=== PATIENT | female | born 1950 | race Caucasian/White ===

== ENCOUNTER 2017-09-04 10:36 | Day surgery (SDC) | payer MEDICARE ==
[~2017-09-04] VITALS: Ht 175.3 cm; Wt 78.0 kg
[~2017-09-04 10:36] MED LIST: 5-Htp50 MG PO; BACL10 PO; CLON.5 PO; Clonazepam0.25 MG PO; FISH OIL 1,0001 EAC1 PO; FISH OIL 1,2001 EACH PO; HYDACE10B PO; LEVSOD125 PO; MOVE FREE JOIN1 EACH PO; Magnesium27 MG PO; Magnesium500 M1 PO; Mobic15 MG PO; Multivitamin1 EAC1 PO; ONE DAILY COMP1 EACH PO; OXYC10TA19 PO; Omeprazole20 M1 PO; Prilosec Otc20 MG PO; VENL25 PO; VENL37.5 PO
[2017-09-10] MEDS ORDERED: VENL37.5 PO (09:51)
[2017-09-10] MEDS ORDERED: FISH OIL 1,2001 EAC1 PO (09:51)
[2017-09-10] MEDS ORDERED: CLON1 PO (09:52)
[2017-09-10] MEDS ORDERED: ACET325 PO (09:52)
[2017-09-10] MEDS ORDERED: CHLO4 PO (09:53)
[2017-09-10] MEDS ORDERED: DIPH50 PO (09:53)
[2017-09-10] MEDS ORDERED: MOVE FREE PO (09:54)
[2017-09-10] MEDS ORDERED: MAGNESIUM PO (09:54)
[2017-09-10] MEDS ORDERED: HYDR1TAB94 PO (09:55)
[2017-09-10] MEDS ORDERED: 5-Htp50 MG PO (09:55)
[2017-09-10] MEDS ORDERED: Omeprazole20 M1 PO (09:56)
== END 2017-09-04 11:53 | disposition home or self-care (01) ==
LOC: ORSCMMR 10:36
PROVIDERS: Internal Medicine Gastroenterology
PROC: 0DB48ZX Excision of Esophagogastric Junction, Via Natural or Artificial Opening Endoscopic, Diagnostic (ICD-10-PCS; principal; 2017-09-04 11:00)
PROC: 0DB68ZX Excision of Stomach, Via Natural or Artificial Opening Endoscopic, Diagnostic (ICD-10-PCS; principal; 2017-09-04 11:00)
DX: K25.3 Acute gastric ulcer without hemorrhage or perforation (principal); K22.70 Barrett's esophagus without dysplasia; K29.70 Gastritis, unspecified, without bleeding; K44.9 Diaphragmatic hernia without obstruction or gangrene; F32.9 Major depressive disorder, single episode, unspecified; Z79.899 Other long term (current) drug therapy; Z87.891 Personal history of nicotine dependence
CPT/HCPCS: 88305; 88342; J7120

== ENCOUNTER 2017-09-26 11:15 | Day surgery (SDC) | payer MEDICARE ==
[~2017-09-26] VITALS: Ht 172.7 cm; Wt 77.6 kg
[~2017-09-26 11:15] MED LIST changes: +ACET325 PO; +CHLO4 PO; +CLON1 PO; +DIPH50 PO; +FISH OIL 1,2001 EAC1 PO; +HYDR1TAB94 PO; +MAGNESIUM PO; +MOVE FREE PO
[2017-09-26] MEDS ORDERED: MAGOXI400 PO (15:49)
[2017-09-26] MEDS ORDERED: GLUC500 PO (15:52)
[2017-09-26] MEDS ORDERED: PROM25 PO (15:53)
[2017-09-26] MEDS ORDERED: ASPI325EC PO (15:53)
[2017-09-26] MEDS ORDERED: OPTIFLEX-C400 MG PO (15:53)
[2017-09-26] MEDS ORDERED: OXYC5 PO (15:54)
[2017-09-27 05:04] LABS: BASOPHILS ABSOLUTE AUTO 0.01 K/mm3 (0.00-0.23); BASOPHILS PERCENT AUTO 0 % (0-2); EOSINOPHILS PERCENT AUTO 0 % (0-6); Hematocrit 28.6 % (33.0-51.0); Hemoglobin 9.4 g/dL (11.5-16.0); IMMATURE GRAN ABSOLUTE AUTO 0.03 K/mm3 (0.00-0.10); IMMATURE GRAN PERCENT AUTO 0 % (0-1); LYMPHOCYTES ABSOLUTE AUTO 1.12 K/mm3 (0.84-5.20); LYMPHOCYTES PERCENT AUTO 13 % (21-46); MONOCYTES ABSOLUTE AUTO 0.77 K/mm3 (0.16-1.47); MONOCYTES PERCENT AUTO 9 % (4-13); Mean Corpuscular HGB 30.7 pg (26.0-34.0); Mean Corpuscular HGB Conc 32.9 g/dL (31.5-36.5); Mean Corpuscular Volume 94 fL (80-100); Mean Platelet Volume 10.5 fL (9.1-12.4); NEUTROPHILS ABSOLUTE AUTO 6.53 K/mm3 (1.96-9.15); NEUTROPHILS PERCENT AUTO 77 % (41-73); Platelet Count 164 K/mm3 (150-400); RDW Coefficient Variation 14.1 % (11.7-14.2); Red Blood Cell Count 3.06 M/mm3 (3.80-5.20); White Blood Cell Count 8.46 K/mm3 (4.00-11.30)
[2017-09-27 05:34] LABS: Anion Gap 8 mmol/L (6-16); Blood Urea Nitrogen 16 mg/dL (8-24); Bun/Creatinine Ratio 19.8 (12.0-20.0); CO2, Blood 26 mmol/L (21-32); Calcium, Blood 8.1 mg/dL (8.5-10.1); Chloride, Blood 104 mmol/L (98-108); Creatinine, Blood 0.81 mg/dL (0.40-1.00); Glomerular Filtration Rate >60 (60-); Glucose, Blood 102 mg/dL (70-99); Potassium, Blood 4.2 mmol/L (3.5-5.5); Sodium, Blood 138 mmol/L (136-145)
[2017-09-27] MEDS ORDERED: ENOX40I SC (07:48)
== END 2017-09-27 14:29 | disposition home or self-care (01) ==
LOC: SURS 11:15 → ORSCMMR 11:15 → SURS 11:15 → PRE IP 11:15 → EDSTATUS 13:45 → PRE IP 13:45 → SURS 16:37 → ENPENDDIS 09-27 09:19 → ORSCMMR 09-27 14:29 → SURS 09-27 14:29
PROVIDERS: Orthopaedic Surgery
PROC: 0SRD0J9 Replacement of Left Knee Joint with Synthetic Substitute, Cemented, Open Approach (ICD-10-PCS; principal; 2017-09-26 13:45)
DX: M17.12 Unilateral primary osteoarthritis, left knee (principal); Z01.812 Encounter for preprocedural laboratory examination; E78.00 Pure hypercholesterolemia, unspecified; F31.9 Bipolar disorder, unspecified; F43.10 Post-traumatic stress disorder, unspecified; Z79.899 Other long term (current) drug therapy
CPT/HCPCS: 36415; 73560-LT; 80048; 83735; 85025; 86850; 86900; 86901; 88300; 97110; 97116; 97161; C1713; C1776; G8978; G8979; G8980; J0171; J0360; J0690; J0735; J1100; J1650; J1885; J2250; J2405; J2550; J2795; J3010; J3370; J7120

== ENCOUNTER 2020-05-30 03:22 | Emergency (ER) | payer MEDICARE ==
[~2020-05-30] VITALS: Ht 175.3 cm; Wt 74.8 kg
[~2020-05-30 03:22] MED LIST changes: +ASPI325EC PO; +ENOX40I SC; +GLUC500 PO; +MAGOXI400 PO; +OPTIFLEX-C400 MG PO; +OXYC5 PO; +PROM25 PO
[2020-05-30 05:41] LABS: BASOPHILS ABSOLUTE AUTO 0.03 K/mm3 (0.00-0.23); BASOPHILS PERCENT AUTO 0 % (0-2); EOSINOPHILS ABSOLUTE AUTO 0.05 K/mm3 (0.00-0.68); EOSINOPHILS PERCENT AUTO 1 % (0-6); Hematocrit 41.4 % (33.0-51.0); Hemoglobin 13.6 g/dL (11.5-16.0); IMMATURE GRAN ABSOLUTE AUTO 0.03 K/mm3 (0.00-0.10); IMMATURE GRAN PERCENT AUTO 0 % (0-1); LYMPHOCYTES ABSOLUTE AUTO 1.03 K/mm3 (0.84-5.20); LYMPHOCYTES PERCENT AUTO 10 % (21-46); MONOCYTES ABSOLUTE AUTO 0.65 K/mm3 (0.16-1.47); MONOCYTES PERCENT AUTO 6 % (4-13); Mean Corpuscular HGB 30.8 pg (26.0-34.0); Mean Corpuscular HGB Conc 32.9 g/dL (31.5-36.5); Mean Corpuscular Volume 94 fL (80-100); Mean Platelet Volume 11.1 fL (9.1-12.4); NEUTROPHILS ABSOLUTE AUTO 8.47 K/mm3 (1.96-9.15); NEUTROPHILS PERCENT AUTO 83 % (41-73); Platelet Count 174 K/mm3 (150-400); RDW Coefficient Variation 13.8 % (11.7-14.2); RDW Standard Deviation 48.2 fL (35.1-46.3); Red Blood Cell Count 4.41 M/mm3 (3.80-5.20); White Blood Cell Count 10.26 K/mm3 (4.00-11.30)
[2020-05-30 05:55] LABS: Alanine Aminotransfer (ALT/SGP 13 U/L (12-78); Albumin/Globulin Ratio 1.1 (0.8-1.8); Alk Phos 80 U/L (50-136); Anion Gap 8 mmol/L (6-16); Aspartate Aminotrans (AST/SGOT 18 U/L (12-37); Bilirubin, Total 0.4 mg/dL (0.1-1.0); Blood Urea Nitrogen 20 mg/dL (8-24); Bun/Creatinine Ratio 26.9 (12.0-20.0); CO2, Blood 23 mmol/L (21-32); Calcium, Blood 9.6 mg/dL (8.5-10.1); Chloride, Blood 108 mmol/L (98-108); Creatinine, Blood 0.74 mg/dL (0.40-1.00); Globulin, Blood 3.6 g/dL (2.2-4.0); Glomerular Filtration Rate >60 (60-); Glucose, Blood 124 mg/dL (70-99); Potassium, Blood 3.5 mmol/L (3.5-5.5); Sodium, Blood 139 mmol/L (136-145); Total Protein, Blood 7.6 g/dL (6.4-8.2)
[2020-05-30 09:07] LABS: Adenovirus F 40/41 Not Detected (NOT DETECT); Astrovirus Not Detected (NOT DETECT); Campylobacter Sp Not Detected (NOT DETECT); Cryptosporidium Not Detected (NOT DETECT); Cyclospora Cayetanensis Not Detected (NOT DETECT); E. Coli O157 Not Detected (NOT DETECT); Entamoeba Histolytica Not Detected (NOT DETECT); Enteroaggregative E. coli-EAEC Not Detected (NOT DETECT); Enteropathogenic E. coli-EPEC Not Detected (NOT DETECT); Enterotoxigenic E. coli-ETEC Not Detected (NOT DETECT); Giardia Lamblia Not Detected (NOT DETECT); Norovirus GI/GII Not Detected (NOT DETECT); Plesiomonas Shigelloides Not Detected (NOT DETECT); Rotavirus A Not Detected (NOT DETECT); Salmonella Sp Not Detected (NOT DETECT); Sapovirus Not Detected (NOT DETECT); Shiga Toxin-prod E. coli-STEC Not Detected (NOT DETECT); Shigella/Enteroin E. coli-EIEC Not Detected (NOT DETECT); Vibrio Cholerae Not Detected (NOT DETECT); Vibrio Sp Not Detected (NOT DETECT); Yersinia Enterocolitica Not Detected (NOT DETECT)
== END 2020-05-30 07:36 | disposition home or self-care (01) ==
LOC: ER 03:22
PROVIDERS: Emergency Medicine
DX: N13.2 Hydronephrosis with renal and ureteral calculous obstruction (principal); R19.7 Diarrhea, unspecified; F31.9 Bipolar disorder, unspecified; E78.00 Pure hypercholesterolemia, unspecified; F43.10 Post-traumatic stress disorder, unspecified; Z79.899 Other long term (current) drug therapy
CPT/HCPCS: 0097U; 36415; 74177; 80053; 83690; 85025; 99284-25; Q9967

== ENCOUNTER 2020-12-17 13:48 | Emergency (ER) | payer MEDICARE ==
[~2020-12-17] VITALS: Ht 175.3 cm; Wt 73.9 kg
[2020-12-17 14:52] LABS: BASOPHILS ABSOLUTE AUTO 0.04 K/mm3 (0.00-0.23); BASOPHILS PERCENT AUTO 0 % (0-2); EOSINOPHILS ABSOLUTE AUTO 0.01 K/mm3 (0.00-0.68); EOSINOPHILS PERCENT AUTO 0 % (0-6); Hematocrit 40.8 % (33.0-51.0); Hemoglobin 13.6 g/dL (11.5-16.0); IMMATURE GRAN ABSOLUTE AUTO 0.05 K/mm3 (0.00-0.10); IMMATURE GRAN PERCENT AUTO 0 % (0-1); LYMPHOCYTES ABSOLUTE AUTO 1.02 K/mm3 (0.84-5.20); LYMPHOCYTES PERCENT AUTO 8 % (21-46); MONOCYTES ABSOLUTE AUTO 0.96 K/mm3 (0.16-1.47); MONOCYTES PERCENT AUTO 8 % (4-13); Mean Corpuscular HGB 31.1 pg (26.0-34.0); Mean Corpuscular HGB Conc 33.3 g/dL (31.5-36.5); Mean Corpuscular Volume 93 fL (80-100); Mean Platelet Volume 10.7 fL (9.1-12.4); NEUTROPHILS ABSOLUTE AUTO 10.75 K/mm3 (1.96-9.15); NEUTROPHILS PERCENT AUTO 84 % (41-73); Platelet Count 202 K/mm3 (150-400); RDW Coefficient Variation 13.4 % (11.7-14.2); RDW Standard Deviation 46.6 fL (35.1-46.3); Red Blood Cell Count 4.37 M/mm3 (3.80-5.20); White Blood Cell Count 12.83 K/mm3 (4.00-11.30)
[2020-12-17 15:06] LABS: Alanine Aminotransfer (ALT/SGP 8 U/L (12-78); Albumin, Blood 3.6 g/dL (3.4-5.0); Albumin/Globulin Ratio 0.8 (0.8-1.8); Alk Phos 121 U/L (50-136); Anion Gap 9 mmol/L (6-16); Aspartate Aminotrans (AST/SGOT 8 U/L (12-37); Bilirubin, Total 0.7 mg/dL (0.1-1.0); Blood Urea Nitrogen 16 mg/dL (8-24); Bun/Creatinine Ratio 17.6 (12.0-20.0); CO2, Blood 24 mmol/L (21-32); Calcium, Blood 9.8 mg/dL (8.5-10.1); Chloride, Blood 100 mmol/L (98-108); Creatinine, Blood 0.91 mg/dL (0.40-1.00); Globulin, Blood 4.4 g/dL (2.2-4.0); Glomerular Filtration Rate >60 (60-); Glucose, Blood 116 mg/dL (70-99); Potassium, Blood 4.1 mmol/L (3.5-5.5); Sodium, Blood 133 mmol/L (136-145); Troponin I <0.015 ng/mL (0.000-0.040)
[2020-12-17 18:08] LABS: Source, Urine Clean Catch
[2020-12-17 18:37] LABS: Bilirubin, Urine Neg (Neg); Blood, Urine 2+ (Neg); Glucose Qualitative, Urine Neg (Neg); Ketones, Urine Neg (Neg); Leukocyte Esterase, Urine 1+ (Neg); Nitrite, Urine Neg (Neg); Protein, Urine 1+ (Neg); Urobilinogen, Urine NORM (Normal)
[2020-12-17 18:48] LABS: Appearance, Urine Hazy (Clear); Color, Urine Yellow (P-Yellow)
[2020-12-17 18:50] LABS: Bacteria Mod /hpf; Red Blood Cells, Urine 0-2 /hpf (0-2); Squamous Epithelial Cells Few /hpf (Few); White Blood Cells, Urine 0-2 /hpf (0-5)
== END 2020-12-17 19:02 | disposition home or self-care (01) ==
LOC: ER 13:48
PROVIDERS: Emergency Medicine; Physician Assistant
DX: M79.604 Pain in right leg (principal); M79.605 Pain in left leg; Z79.899 Other long term (current) drug therapy; Z87.891 Personal history of nicotine dependence
CPT/HCPCS: 36415; 71045; 80053; 81001; 84484; 85025; 87086; 93005; 93010; 93970; 99284-25

== ENCOUNTER → 2020-12-17 | Outpatient (CLI) | payer MEDICARE | END | disposition home or self-care (01) | LOC: LAB SHORT 12:00 | DX: R19.7 Diarrhea, unspecified (principal) | CPT/HCPCS: 87015; 87045; 87046; 87205; 87899 ==

== ENCOUNTER 2021-01-17 09:26 | Day surgery (SDC) | payer MEDICARE ==
[~2021-01-17] VITALS: Ht 175.3 cm; Wt 75.9 kg
--- NOTE | 2021-01-17 09:58 | NUR ---
Ambulatory in Day Surgery Patient states colon prep results clear. Patient confirms NPO status and agrees with scheduled surgery. History, Chart, Medications and Allergies reviewed before start of procedure. Lungs clear T/O to Auscultation. Patient States Post-Procedure ride home has been arranged.
--- NOTE | 2021-01-17 10:20 | NUR ---
PTS COVID VACCINE QUESTIONED, PT REPORTS HAS SECOND VACCINE. DATE ON CARD, STS FUTURE DATE (01/22). PHARMACY CALLED AND STATES THEY WERE UNABLE TO FIND PROOF THAT SECOND VACCINE WAS ADMINISTERED. REPORTS PT WAS A "NO SHOW". RECENT COVID TEST AND PCR COMPLETED, APPROX [address] TRISTAN CONTACTED, INSTRUCTIONS FOR RAPID COVID TESTING PRIOR TO PROCEDURE. PT AGREES TO PROCEDURE. SWAB COLLECTED AND TAKEN TO LAB.
[2021-01-17 11:29] LABS: SARS-Cov-2 (COVID-19) PCR, MMC NEGATIVE (NEGATIVE)
--- NOTE | 2021-01-17 11:38 | NUR ---
01/17/21 1138 Jesus Crook History, Chart, Medications and Allergies reviewed before start of procedure. MONITOR INTACT WITH CONTINUOUS PULSE OXIMETRY AND INTERMITTENT BP. 3-LEAD EKG REVIEWED WITH PHYSICIAN PRIOR TO START OF PROCEDURE. O2 VIA N/C INTACT THROUGHOUT SEDATION/PROCEDURE. PATIENT DETERMINED TO BE ASA APPROPRIATE FOR PROPOFOL SEDATION PRIOR TO START OF PROCEDURE BY DR. RAMÍREZ.
--- NOTE | 2021-01-17 12:56 | NUR ---
Patient up to Ambulate independently. Gait steady. Discharge instructions reviewed with patient. Patient verbalizes understanding. Copy given to patient to take home. Patient States Post-Procedure ride home has been arranged WITH FRIEND. Discharged via wheelchair to private car for ride home.
== END 2021-01-17 12:49 | disposition home or self-care (01) ==
LOC: ORSCMMR 09:26 → ORD 10:30 → ORSCMMR 12:49
PROVIDERS: Anesthesiology; Internal Medicine Gastroenterology
PROC: 0DBB8ZX Excision of Ileum, Via Natural or Artificial Opening Endoscopic, Diagnostic (ICD-10-PCS; principal; 2021-01-17 10:30)
PROC: 0DBL8ZX Excision of Transverse Colon, Via Natural or Artificial Opening Endoscopic, Diagnostic (ICD-10-PCS; principal; 2021-01-17 10:30)
PROC: 0DBK8ZX Excision of Ascending Colon, Via Natural or Artificial Opening Endoscopic, Diagnostic (ICD-10-PCS; principal; 2021-01-17 10:30)
PROC: 0DBN8ZX Excision of Sigmoid Colon, Via Natural or Artificial Opening Endoscopic, Diagnostic (ICD-10-PCS; principal; 2021-01-17 10:30)
DX: R19.7 Diarrhea, unspecified (principal); K52.832 Lymphocytic colitis; F32.9 Major depressive disorder, single episode, unspecified; R10.9 Unspecified abdominal pain; Z87.891 Personal history of nicotine dependence; Z79.899 Other long term (current) drug therapy; Z20.822 Contact with and (suspected) exposure to COVID-19
CPT/HCPCS: 88305; J2704; J7120; U0004

== ENCOUNTER 2022-11-29 11:11 | Day surgery (SDC) | payer MEDICARE ==
[~2022-11-29] VITALS: Ht 172.7 cm; Wt 78.3 kg
[~2022-11-29 11:11] MED LIST changes: +ASPI81CH PO; +Aspir 8181 MG PO; +CALCIUM MAGNESIUM PO; +METO25ER PO; +NITR.4SL SL; +OMEP20ER PO; +PROBIOTIC1 EA13 PO; +ROSU10TA PO
--- NOTE | 2022-11-29 11:59 | NUR ---
Ambulatory in Day Surgery Surgical site prepped with 2% Chlorhexidine cloth wipe. History, Chart, Medications and Allergies reviewed before start of procedure.Patient confirms NPO status and agrees with scheduled surgery. Lungs clear T/O to Auscultation. Patient reports completing Chlorhexadine shower X2 prior to admission to hospital.
--- NOTE | 2022-11-29 15:11 | NUR ---
11/29/22 1511 Adeel Bah I PATIENT RECEIVED IV VANCOMYCIN 1 GRAM IN THE PREOPERATIVE SETTING.
--- NOTE | 2022-11-29 18:00 | NUR ---
PATIENT CAME BACK FROM PACU TODAY AT 1730. POD 0 RIGHT TKA PATIENT IS A&OX4. VS ARE WNL AND IS ON RA. PATIENT DENIES PAIN AT THIS TIME. SHE REPORTS SLIGHT NUMBNESS IN HER RIGHT FOOT BUT SHE IS ABLE TO WIGGLE ALL FINGERS AND TOES WHEN ASKED. PEDAL PULSES ARE STRONG. PATIENT IS NAUSEOUS AND SHE STATED "THIS USUALLY HAPPENS AFTER SURGERIES FOR ME, BUT I FEEL PRETTY OKAY FOR NOW AND DON'T WANT MEDICATIONS AT THIS TIME". SHE IS TOLERATING SMALL AMOUNTS OF PO INTAKE. SHE IS LAYING IN BED WITH CALL LIGHT IN REACH.
[2022-11-30 04:42] LABS: BASOPHILS ABSOLUTE AUTO 0.02 K/mm3 (0.00-0.23); BASOPHILS PERCENT AUTO 0 % (0-2); EOSINOPHILS PERCENT AUTO 0 % (0-6); Hematocrit 27.3 % (33.0-51.0); Hemoglobin 9.2 g/dL (11.5-16.0); IMMATURE GRAN ABSOLUTE AUTO 0.03 K/mm3 (0.00-0.10); IMMATURE GRAN PERCENT AUTO 0 % (0-1); LYMPHOCYTES ABSOLUTE AUTO 0.91 K/mm3 (0.84-5.20); LYMPHOCYTES PERCENT AUTO 11 % (21-46); MONOCYTES ABSOLUTE AUTO 0.64 K/mm3 (0.16-1.47); MONOCYTES PERCENT AUTO 8 % (4-13); Mean Corpuscular HGB 31.1 pg (26.0-34.0); Mean Corpuscular HGB Conc 33.7 g/dL (31.5-36.5); Mean Corpuscular Volume 92 fL (80-100); Mean Platelet Volume 11.4 fL (9.1-12.4); NEUTROPHILS ABSOLUTE AUTO 6.82 K/mm3 (1.96-9.15); NEUTROPHILS PERCENT AUTO 81 % (41-73); Platelet Count 111 K/mm3 (150-400); RDW Coefficient Variation 14.5 % (11.7-14.2); RDW Standard Deviation 48.8 fL (35.1-46.3); Red Blood Cell Count 2.96 M/mm3 (3.80-5.20); White Blood Cell Count 8.42 K/mm3 (4.00-11.30)
[2022-11-30 05:07] LABS: Bun/Creatinine Ratio 34.9 (12.0-20.0); Calcium, Blood 8.1 mg/dL (8.5-10.1); Creatinine, Blood 0.74 mg/dL (0.40-1.00); Potassium, Blood 4.2 mmol/L (3.5-5.5)
--- NOTE | 2022-11-30 05:24 | NUR ---
SHIFT SUMMARY POD1 RIGHT TKA. DRESSINGS ARE C/D/I, SENSATION AND CIRCULATION ARE INTACT. VSS. HYPOTENTION NOTED THIS AM, PT REMAINS ASYMPTOMATIC. IV FLUIDS STARTED. PT WAS ABLE TO AMBULATE MULTIPLE TIMES T/O THE NIGHT, VOIDING W/O DIFFICULTY. TOLLERATING PO INTAKE W/O N/V. PAIN WAS DIFFICULT TO MANAGE AT THE BEGINNING OF SHIFT, BUT IT IS NOW UNDER CONTROL. PT HARDLY SLEPT T/O THE NIGHT. NO ACUTE EVENTS NOTED T/O THE NIGHT. PLAN FOR PT TO WORK WITH PT AND D/C HOME TODAY. THE PATIENT IS CURRENTLY TRYING TO SLEEP, IN NO DISTRESS, CALL LIGHT IN REACH
[2022-11-30] MEDS ORDERED: XARELTO20 MG PO (07:56)
[2022-11-30] MEDS ORDERED: SULTRIDS PO (07:56)
[2022-11-30] MEDS ORDERED: OXYC5 PO (07:58)
[2022-11-30] MEDS ORDERED: PROMETHAZINE12.5 M1 PO (07:58)
--- NOTE | 2022-11-30 11:15 | NUR ---
0820 PT DECLINES XARELTO- STATES IT IS TO EXPENSIVE AND SHE DOES NOT HAVE PRESCRIPTION COVERAGE. DISCUSSED WITH PATIENT THAT MUSIC MANAGER CAN SPEAK WITH HER PRIOR TO DISCHARGE AND PROVIDE A PATIENT ASSISTANCE CARD. PT DECLINES TO TAKE THIS MORNING DOSE OF XARELTO STATES THE HOSPITAL WILL CHARGE "PROBABLY A HUNDRED DOLLARS FOR ONE PILL". SPOKE WITH MUSIC MANAGER XAVIER LEHMAN RN AND [employer]EL[employer] PRESCRIPTION CARD PROVIDED TO PATIENT
--- NOTE | 2022-11-30 11:18 | NUR ---
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 PT STATES WHEN HER DAUGHTER ARRIVES SHE WILL HAVE HER CHECK AT [employer] TO SEE IF XARELTO WILL BE COVERED, STATES HER DAUGHTER WILL NOT BE PICKING UP PRESCRIPTION TODAY AND PT TELLS ME "I WILL TAKE THE ASPIRIN". PT DECLINES [facility] BEING FAXED TO PHARMACY. PHONE CALL MADE TO DR ESPINOZA OFFICE AND SPOKE WITH STAFF REGARDING PTS RELUCTANCE TO TAKE XARELTO.
--- NOTE | 2022-11-30 12:05 | NUR ---
7212 DISCHARGED TO HOME WITH DAUGHTER. DRESSING SUPPLIES PROVIDED TO PATIENT. PT IN AGREEMENT WITH PLAN TO DISCHARGE TO HOME. FELICIA PO FOOD AND FLUIDS WITHOUT NAUSEA. VOIDING CLEAR YELLOW URINE. AMBULATING WITH GAIT BELT, WALKER AND STANDBY ASSIST
== END 2022-11-30 11:55 | disposition home or self-care (01) ==
LOC: ORSCMMR 11:11 → ORD 17:30 → ORSCMMR 17:30 → SURS 17:41 → ORSCMMR 11-30 11:55
PROVIDERS: Orthopaedic Surgery
PROC: 0SRC0J9 Replacement of Right Knee Joint with Synthetic Substitute, Cemented, Open Approach (ICD-10-PCS; principal; 2022-11-29 14:15)
DX: M17.11 Unilateral primary osteoarthritis, right knee (principal); Z96.652 Presence of left artificial knee joint; Z96.643 Presence of artificial hip joint, bilateral; Z79.899 Other long term (current) drug therapy; Z87.891 Personal history of nicotine dependence; I25.10 Atherosclerotic heart disease of native coronary artery without angina pectoris; E78.5 Hyperlipidemia, unspecified; F31.9 Bipolar disorder, unspecified; F43.10 Post-traumatic stress disorder, unspecified
CPT/HCPCS: 36415; 73560-RT; 80048; 83735; 85025; 97110; 97116; 97162; A9270; C1713; C1776; J0171; J0690; J0735; J1100; J1885; J2250; J2405; J2704; J2795; J3010; J3370; J7050; J7120

== ENCOUNTER 2023-05-16 10:19 | Day surgery (SDC) | payer MEDICARE ==
[~2023-05-16] VITALS: Ht 175.3 cm; Wt 77.0 kg
[2023-05-16] VITALS (17 sets, daily range): BP systolic 127–185; BP diastolic 63–104
[~2023-05-16 10:19] MED LIST changes: +PROMETHAZINE12.5 M1 PO; +SULTRIDS PO; +XARELTO20 MG PO
[2023-05-16] MEDS ORDERED: 5-HTP100 M1 PO (10:50)
== END 2023-05-16 22:58 | disposition home or self-care (01) ==
LOC: MHTC 10:19
DX: I34.1 Nonrheumatic mitral (valve) prolapse (principal); I34.0 Nonrheumatic mitral (valve) insufficiency; I25.10 Atherosclerotic heart disease of native coronary artery without angina pectoris; I47.29 Other ventricular tachycardia; I47.1 Supraventricular tachycardia; F31.9 Bipolar disorder, unspecified; Z87.891 Personal history of nicotine dependence
CPT/HCPCS: 93242; 93312; 93325; A9270; J2001; J2704; J7030

== ENCOUNTER → 2024-10-30 | Outpatient (CLI) | payer MEDICARE ==
[~2024-10-30] MED LIST changes: +5-HTP100 M1 PO
[2024-10-30 17:01] LABS: BASOPHILS ABSOLUTE AUTO 0.02 K/mm3 (0.00-0.23); BASOPHILS PERCENT AUTO 0 % (0-2); EOSINOPHILS ABSOLUTE AUTO 0.09 K/mm3 (0.00-0.68); EOSINOPHILS PERCENT AUTO 1 % (0-6); Hemoglobin 12.7 g/dL (11.5-16.0); IMMATURE GRAN ABSOLUTE AUTO 0.02 K/mm3 (0.00-0.10); IMMATURE GRAN PERCENT AUTO 0 % (0-1); LYMPHOCYTES ABSOLUTE AUTO 1.54 K/mm3 (0.84-5.20); LYMPHOCYTES PERCENT AUTO 21 % (21-46); MONOCYTES ABSOLUTE AUTO 0.67 K/mm3 (0.16-1.47); MONOCYTES PERCENT AUTO 9 % (4-13); Mean Corpuscular HGB 31.2 pg (26.0-34.0); Mean Corpuscular HGB Conc 34.3 g/dL (31.5-36.5); Mean Corpuscular Volume 91 fL (80-100); Mean Platelet Volume 10.5 fL (9.1-12.4); NEUTROPHILS ABSOLUTE AUTO 5.07 K/mm3 (1.96-9.15); NEUTROPHILS PERCENT AUTO 68 % (41-73); Platelet Count 215 K/mm3 (150-400); RDW Coefficient Variation 13.8 % (11.7-14.2); RDW Standard Deviation 46.3 fL (35.1-46.3); Red Blood Cell Count 4.07 M/mm3 (3.80-5.20); White Blood Cell Count 7.41 K/mm3 (4.00-11.30)
[2024-10-30 17:15] LABS: Albumin, Blood 3.4 g/dL (3.4-5.0); Albumin/Globulin Ratio 0.9 (0.8-1.8); Bilirubin, Total 0.5 mg/dL (0.1-1.0); Bun/Creatinine Ratio 28.9 (12.0-20.0); Calcium, Blood 8.9 mg/dL (8.5-10.1); Creatinine, Blood 0.9 mg/dL (0.40-1.00); Globulin, Blood 3.7 g/dL (2.2-4.0); Potassium, Blood 4.4 mmol/L (3.5-5.5); Total Protein, Blood 7.1 g/dL (6.4-8.2)
== END ==
LOC: LAB 16:58 → LAB SHORT 16:58
PROVIDERS: Family Medicine
DX: R10.9 Unspecified abdominal pain (principal)
CPT/HCPCS: 80053; 85025